=== PATIENT | female | born 1975 | race Caucasian/White ===

== ENCOUNTER 2022-07-30 01:41 | Outpatient (CLI) | payer OTHER, MEDICAID | END 2022-07-30 23:59 | disposition critical access hospital (66) | LOC: EMS 01:41 | DX: R11.10 Vomiting, unspecified (principal); R10.84 Generalized abdominal pain | CPT/HCPCS: A0425; A0427 ==

== ENCOUNTER 2022-07-30 02:03 | Emergency (ER) | payer OTHER, MEDICAID ==
--- NOTE | 2022-07-30 02:05 | ED Physician Documentation ---
PD HPI ABD PAIN - Stated complaint Stated Complaint: ABD PAIN - History obtained from History obtained from: Patient, EMS - Additional information Additional information: Brought in by ambulance. HPI primarily from patient, with some HPI provided by EMS. Patient complains of nausea and vomiting x4 days. Patient says she cannot tolerate any p.o. including liquids. She also is having waxing and waning abdominal pain, predominantly in epigastric area and radiating to her back. Patient says that her symptoms seem similar to previous episodes attributed to pancreatitis. Patient was given 4 mg intravenous Zofran by EMS. This patient was treated and released from [facility] emergency department 3 days ago (July 27), and then treated and released from the [facility] emergency department the following day. RAYSHAWN form reflects that elza is patient's 12th ER visit to [facility] over the past 12 months involving 4 different emergency departments. Review of Systems Constitutional: denies: Fever Cardiac: reports: Reviewed and negative Respiratory: reports: Reviewed and negative GI: reports: Abdominal Pain, Nausea, Vomiting. denies: Constipation, Diarrhea : denies: Dysuria, Frequency, Now [facility] PD PAST MEDICAL HISTORY - Past Medical History Past Medical History: Yes GI: Pancreatitis - Present Medications Home Medications: Ambulatory Orders Medication Instructions Recorded Confirmed Promethazine [Phenergan] 25 mg PO Q6H PRN #14 tab 07/30/22 Sucralfate [Carafate] 1 tablet PO ACHS #60 tablet 07/30/22 - Allergies Allergies/Adverse Reactions: Allergies Allergy/AdvReac Type Severity Reaction Status Date / Time cephalexin Allergy Unknown Verified 07/30/22 02:08 Penicillins Allergy Unknown Verified 07/30/22 02:08 Sulfa (Sulfonamide Allergy Unknown Verified 07/30/22 02:08 Antibiotics) PD ED PE NORMAL - Vitals Vital signs reviewed: Yes - General General: Alert and oriented X 3, No acute distress, Well developed/nourished - Neck Neck: Supple, no meningeal sign - Cardiac Cardiac: RRR, No murmur - Respiratory Respiratory: No respiratory distress, Clear bilaterally - Abdomen Abdomen: Soft, Non distended, Other (TTP across upper abdomen, voluntary guarding but no rebound) - Derm Derm: Normal color, Warm and dry Results - Vitals Vitals: Vital Signs - 24 hr 07/30/22 07/30/22 07/30/22 02:05 04:08 05:39 Temperature 36.7 C Heart Rate 65 66 71 Respiratory 16 16 16 Rate Blood Pressure 132/68 H 132/71 H 128/62 O2 Saturation 99 98 99 Oxygen O2 Source Room air - Labs Labs: Laboratory Tests 07/30/22 07/30/22 07/30/22 02:34 02:34 02:45 WBC 9.1 RBC 4.22 Hgb 13.5 Hct 38.9 MCV 92.2 MCH 32.0 H MCHC 34.7 RDW 12.8 Plt Count 211 MPV 9.0 Neut # (Auto) 7.3 H Lymph # (Auto) 1.3 L Elliott # (Auto) 0.3 Eos # (Auto) 0.0 Baso # (Auto) 0.0 Absolute Nucleated RBC 0.00 Nucleated RBC % 0.0 Sodium 140 Potassium 3.5 Chloride 104 Carbon Dioxide 21 Anion Gap 15.0 H BUN 11 Creatinine 0.7 Estimated GFR (MDRD) 91 Glucose 81 Calcium 8.9 Total Bilirubin 1.2 H AST 20 ALT 17 Alkaline Phosphatase 77 Total Protein 7.0 Albumin 4.2 Globulin 2.8 Albumin/Globulin Ratio 1.5 Lipase 29 Urine Color YELLOW Urine Clarity CLEAR Urine pH 5.5 Ur Specific [place] >=1.030 H Urine Protein NEGATIVE Urine Glucose (UA) NEGATIVE Urine Ketones 40 H Urine Occult Blood SMALL H Urine Nitrite NEGATIVE Urine Bilirubin NEGATIVE Urine Urobilinogen 0.2 (NORMAL) Ur Leukocyte Esterase NEGATIVE Urine RBC 6-10 H Urine WBC 0-3 Ur Squamous Epith Cells MOD Squamous H Urine Bacteria Few Urine Mucus Marked Strands Ur Microscopic Review INDICATED Urine Culture Comments NOT INDICATED - Rads (name of study) CT A/P with IV contrast Relevant Findings:: Prelim report reviewed, See rad report PD Medical Decision Making - ED course Complexity details: reviewed results, re-evaluated patient, considered differential, d/w patient ED course: There are no concerning or diagnostic findings on tonight's blood test. Her ER abdominal panel is normal except for minimally elevated bilirubin (1.2). Her LFTs are otherwise normal as is her lipase level. Her CBC is normal. CT abdomen pelvis with intravenous contrast was performed. This does not show any evidence of pancreatitis nor pseudocyst. The radiologist's impression is "thickened appearance of the large bowel main part be due to under-distention but a mild colitis is difficult to exclude. No bowel obstruction, abscess or perforation. Hepatic steatosis". At this point, the patient's symptoms are of unclear etiology. Differential diagnosis could still include gastritis, mild/shallow peptic ulcer disease. Mild colitis, questionable on CT, would be unlikely to explain extent of patient's symptoms. She is given 1 liter NS IV and 2.5mg droperidol IV. On reevaluation, results d/w patient. She reports improvement although requesting something more for nausea and is given 8mg IV zofran. She is comfortable with d/c home. Given that gastritis/PUD are on differential, I am providing rx for carafate (already taking pepcid and PPI). She says she has zofran at home but this has not been effective tonight (leading to this visit). She does not recall having taken phenergan, compazine, or reglan in the past and thus I am also providing rx for phenergan. Return precautions reviewed. Departure - Departure Disposition: Home, Self Care Clinical Impression: Vomiting Qualifiers: Vomiting type: unspecified Nausea presence: with nausea Qualified Code(s): R11.2 - Nausea with vomiting, unspecified Abdominal pain Qualifiers: Abdominal location: epigastric Qualified Code(s): R10.13 - Epigastric pain Condition: Good Instructions: ED Abdominal Pain Female Non-Specific Abdominal Pain, ED Nausea Vomiting Prescriptions: Sucralfate [Carafate] 1 tablet PO ACHS #60 tablet Promethazine [Phenergan] 25 mg PO Q6H PRN #14 tab PRN Reason: Nausea / Vomiting Comments: There were no concerning or diagnostic findings on the blood test tonight. Your lipase level was normal (pancreatic enzyme), and the CT scan did not show any evidence of pancreatitis. As we discussed, the radiologist says there is a slight thickening of the wall of your colon (large bowel), but this is of unclear significance. This finding might simply be due to the colon being relatively empty of stool, but the radiologist says inflammation of the colon (colitis) would be a possibility. I doubt that you have colitis only because the extent of your symptoms and lack of loose stool and/or diarrhea would make mild colitis a very unlikely explanation of your symptoms. I have electronically submitted prescriptions for Phenergan (antinausea that is different from the Zofran that you are taking) and Carafate (medication that can help with gastritis and peptic ulcer disease, which are 2 possible explanations of your pain and to diagnoses that would not show up on tests performed in the emergency department) to the [facility] pharmacy in [place]. Follow-up with your primary care provider. Call later this morning when their office opens to arrange for next available appointment. You might benefit from further testing such as upper endoscopy, at the discretion of your primary care provider. Forms: Activity restrictions Discharge Date/Time: 07/30/22 05:40
[2022-07-30] MEDS ORDERED: DROPERIDOL 5 MG/2 ML VIAL IVP STA (02:25)
[2022-07-30] MEDS ORDERED: SODIUM CHLORIDE 0.9% 1,000 ML IV STA (02:25)
[2022-07-30 02:38] LABS: BASOPHILS % (AUTO) 0.2 %; EOSINOPHILS % (AUTO) 0.2 %; HCT - HEMATOCRIT 38.9 % (37.0-47.0); HGB - HEMOGLOBIN 13.5 g/dL (12.0-16.0); LYMPHOCYTES # (AUTO) 1.3 10^3/uL (1.5-3.5); LYMPHOCYTES % (AUTO) 14.5 %; MEAN CORPUSCULAR HGB CONC 34.7 g/dL (32.0-36.0); MEAN CORPUSCULAR VOLUME 92.2 fL (81.0-99.0); MONOCYTES # (AUTO) 0.3 10^3/uL (0.0-1.0); MONOCYTES % (AUTO) 3.6 %; NEUTROPHILS # (AUTO) 7.3 10^3/uL (1.5-6.6); NEUTROPHILS % (AUTO) 81.1 %; PLT - PLATELET COUNT 211 10^3/uL (130-450); RED BLOOD COUNT 4.22 10^6/uL (4.20-5.40); RED CELL DISTRIBUTION WIDTH 12.8 % (12.0-15.0); WHITE BLOOD COUNT 9.1 x10^3/uL (4.8-10.8)
[2022-07-30 02:51] LABS: ALBUMIN 4.2 g/dL (3.2-5.5); ALBUMIN/GLOBULIN RATIO 1.5 (1.0-2.2); BILIRUBIN,TOTAL 1.2 mg/dL (0.2-1.0); CALCIUM 8.9 mg/dL (8.5-10.3); CREATININE 0.7 mg/dL (0.4-1.0); POTASSIUM 3.5 mmol/L (3.5-5.0)
[2022-07-30 02:58] LABS: BILIRUBIN,URINE NEGATIVE (NEGATIVE); GLUCOSE, URINE (UA) NEGATIVE (NEGATIVE); KETONES,URINE (UA) 40 mg/dL (NEGATIVE); LEUKOCYTE ESTERASE, URINE NEGATIVE (NEGATIVE); NITRITE,URINE NEGATIVE (NEGATIVE); OCCULT BLOOD,URINE SMALL (NEGATIVE); PH,URINE 5.5 PH (5.0-7.5); PROTEIN,URINE NEGATIVE (NEGATIVE); UROBILINOGEN,URINE 0.2 (NORMAL) E.U./dL (NORMAL)
[2022-07-30 02:59] LABS: CLARITY,URINE CLEAR (CLEAR)
[2022-07-30 03:05] LABS: BACTERIA,URINE Few /HPF (None Seen); MUCUS,URINE Marked Strands; SQUAMOUS EPITHELIAL CELL,UR MOD Squamous (<= Few); WBC,URINE 0-3 /HPF (0-5)
[2022-07-30] MEDS ORDERED: iohexoL-300 100 ML VIAL ONE (03:08)
[2022-07-30] MEDS ORDERED: ONDANSETRON 4 MG/2 ML VIAL IVP STA (05:27)
[2022-07-30] MEDS ORDERED: iohexoL-300 100 ML VIAL IVP ONE (05:39)
[2022-07-30 05:41] VITALS: BP 128/62
--- NOTE | 2022-07-30 09:54 | CT Report ---
PROCEDURE: ABDOMEN/PELVIS W INDICATIONS: abdominal pain CONTRAST: Omni 300 100ml TECHNIQUE: After the administration of IV contrast, 5 mm thick sections acquired from the diaphragms to the symp hysis. 5 mm thick coronal and sagittal reformats were acquired. For radiation dose reduction, the f ollowing was used: automated exposure control, adjustment of mA and/or kV according to patient size. COMPARISON: None. FINDINGS: Image quality: Excellent. Lung bases and heart: Unremarkable. Liver: Normal size. Hepatic steatosis. No solid mass. Gallbladder and biliary tree: Gallbladder is unremarkable. No gallstones. No biliary dilation. Spleen: No splenomegaly. Pancreas: No pancreatic ductal dilation. Adrenals: No adrenal nodule. Kidneys and ureters: No hydronephrosis. No renal cystic lesion which requires follow up. No solid mas s. Bowel and peritoneum: No bowel distension. No pathologic free fluid. There is diffuse colonic wall th ickening suggesting colitis. Mild sigmoid diverticulosis. No acute diverticulitis. Lymph nodes: No central or retroperitoneal adenopathy. Vessels: No infrarenal aortic aneurysm. PELVIS Reproductive organs: Unremarkable. Bladder: No abnormal wall thickening, accounting for underdistension. Pelvic lymph nodes: No pelvic adenopathy by size criteria. Bones: No aggressive osseous abnormality. Other: No significant ventral or inguinal hernia. IMPRESSION: 1. Diffuse colonic wall thickening consistent with colitis. 2. Diverticulosis without diverticulitis. 3. Hepatic steatosis. No significant discrepancy with the preliminary interpretation. Reviewed by: Remigio Magallanes MD on 07/30/2022 9:53 AM PDT Approved by: Remigio Magallanes MD on 07/30/2022 9:53 AM PDT Station ID: [id number]
== END 2022-07-30 05:40 | disposition home or self-care (01) ==
LOC: ED 02:03
DX: R11.2 Nausea with vomiting, unspecified (principal); R10.13 Epigastric pain
CPT/HCPCS: 36415; 74177; 80053; 81001; 83690; 85025; 96374; 96375; 99284; Q9967; 81003; 87086